=== PATIENT | female | born 1955 | race Caucasian/White ===

== ENCOUNTER 2019-05-20 13:09 | Inpatient (IN) ==
[2019-05-20 14:45] LABS: BASO# 0.06 X1000 (0.0-0.2); EOS% 1.7 % (0.0-10.0); HEMATOCRIT 25.7 % (37.0-47.0); HEMOGLOBIN 7.5 g/dL (12.0-16.0); IMM GRAN# 0.33 X1000 (0.0-0.04); IMM GRAN% 5.5 % (0.0-0.5); LYMPH# 2.15 X1000 (1.2-3.4); LYMPH% 35.6 % (20.5-51.1); MCHC 29.2 g/dL (33-37); MCV 102.8 FL (81-99); MONO# 0.51 X1000 (0.11-0.59); MONO% 8.4 % (1.7-9.3); NEUT# 2.89 X1000 (1.4-6.5); NEUT% 47.8 % (42.2-75.2); PLT 88 X1000 (130-400); RDW 17.9 % (11.5-14.5); WBC 6.04 X1000 (4.8-10.8)
[2019-05-20 14:57] LABS: AGAP 14; ALBUMIN 4.4 g/dL (3.5-5.0); ALKALINE PHOSPHATASE 165 U/L (32-104); BUN 9 mg/dL (8-22); CALCIUM 9.4 mg/dL (8.8-10.2); CHLORIDE 102 mmol/L (98-107); COSMO 282; CREATININE 0.5 mg/dL (0.5-0.9); ESTIMATED GFR > 60; GLUCOSE 94 mg/dL (70-104); GOT 23 U/L (10-30); GPT 10 U/L (10-36); LIPASE 15 U/L (13-60); POTASSIUM 3.9 mmol/L (3.5-5.1); SODIUM 142 mmol/L (136-145); TCO2 26 mmol/L (25-35); TOTAL PROTEIN 7.7 g/dL (6.3-8.3)
--- NOTE | 2019-05-20 16:03 | Diag Imaging Result Doc PS360 ---
EXAM: CT ABD/PELVIS W/IV CONT ONLY - 05/20/2019 HISTORY: LLQ, anterior rib pain TECHNIQUE: CT abdomen/pelvis with intravenous contrast COMPARISON: None. FINDINGS: The bony structures of the spine and pelvis demonstrates heterogeneous density with multiple round lucent lesions. There is some involvement of some visualized ribs, most conspicuous at the left posterior eighth, ninth, and 10th ribs. This can be seen with metastatic disease or multiple myeloma. There are postlaminectomy changes at the mid and lower lumbar spine. The visualized lung bases appear clear except for some hazy atelectasis. There are no substantial abnormalities of the liver, adrenal glands, or pancreas identified. The spleen is mildly prominent in size but demonstrate homogeneous enhancement. The gallbladder surgically absent. There is a 1.8 cm cyst at the anterior lower right kidney. The bilateral kidneys otherwise enhance homogeneously. There is a 4 mm nonobstructing stone in the mid to upper right kidney. There is no hydronephrosis. There are no substantially enlarged lymph nodes identified. There is a small midline anterior abdominal wall hernia at the midabdomen which contains fat. There is no bowel containing hernia identified. There is no evidence of bowel obstruction. There is no substantial bowel wall thickening identified. There is a moderate amount retained fecal debris in the colon suggesting constipation. There is no free air, free fluid, or abscess identified. There is no abnormal pelvic mass or fluid collection identified. IMPRESSION: Heterogeneous bony structures with multiple round lucent lesions. This can be seen with metastatic disease and multiple myeloma. Mild splenomegaly, without focal lesion. No other evidence of metastatic disease to the soft tissue abdomen/pelvis. Small right renal cyst. 4 mm nonobstructing stone in right kidney. No hydronephrosis. Small fat-containing midline anterior abdominal wall hernia at the midabdomen. No bowel containing hernia. No bowel obstruction. Apparent constipation. This report was discussed with Dr. Patel on 05/20/2019 at 3:59 PM and was readback. This exam was performed using automated exposure control, adjustment of mA or kV according to patient size, and/or use of iterative reconstruction technique. Electronically signed by Carlo Velasco 05/20/2019 4:01 PM
--- NOTE | 2019-05-20 16:16 | PROVIDER DOCUMENTATION ---
This chart was entered by Claudia Moore Scribe, acting as scribe for Marli Garza MD. HPI-General Adult - General Chief Complaint: Abnormal Lab[s] Stated Complaint: ABNORMAL LABS Time Seen by Provider: 05/20/19 13:50 Source: patient Allergies/Adverse Reactions: Patient Allergies Allergy/AdvReac Type Severity Reaction Status Date / Time meclizine [From Antivert] AdvReac Unknown Verified 05/20/19 18:47 Home Medications: Home Medication List Medication Instructions Recorded Confirmed Last Taken Type NK [No Home Medications] 05/20/19 05/20/19 Unknown History - History of Present Illness -Gen Adult Nature of Presenting Problems: Patient is a 64 year old female who presents with abnormal labs. States being seen at [facility] clinic for left side rib pain. Report pain has been present for 3 weeks. States being informed she has low H&H. Denies bleeding. Location of Pain/Injury: reports: other (left side ribs) Pain Radiation: reports: no radiation Quality of Pain: reports: aching Severity: reports: mild Onset/Duration: reports: other (3 weeks) Timing: reports: still present Context/Activities at Onset: reports: light activity Associated Symptoms: reports: denies symptoms Similar Symptoms Previously?: Yes Recently seen or treated by another doctor?: Yes Review of Systems - Adult - REVIEW OF SYSTEMS - ADULT Constitutional: reports: no symptoms reported Eyes: reports: no symptoms reported Ears, Nose, Mouth & Throat: reports: no symptoms reported Cardiovascular: reports: no symptoms reported Respiratory: reports: no symptoms reported Gastrointestinal: reports: no symptoms reported Genitourinary: reports: no symptoms reported Musculoskeletal: reports: see HPI, other (left side ribs pain) Integumentary: reports: no symptoms reported Neurological: reports: no symptoms reported Psychiatric: reports: no symptoms reported Endocrine: reports: no symptoms reported Hematologic/Lymphatic: reports: no symptoms reported Allergic/Immunologic: reports: no symptoms reported All Other Systems: Reviewed and Negative Past History - Adult - PAST MEDICAL HISTORY-ADULT Review of Records: reports: Old Records Reviewed, Nursing Assessment Review, Medications Reviewed, Social history reviewed & non-contributory. Major Childhood Illnesses: reports: denies history Cardiovascular: reports: HTN Respiratory: reports: denies history Gastrointestinal: reports: denies history Obstetrical/Gynecological: reports: denies history Genitourinary: reports: denies history Musculoskeletal: reports: denies history Neurological: reports: denies history Endocrine/Immune: reports: denies history Other Conditions: reports: denies history - PRIOR SURGERIES/PROCEDURES Surgical/Procedure History: reports: appendectomy, tonsillectomy, back/neck - IMMUNIZATION STATUS Childhood Immunizations: See Nurse Assessment Flu Vaccine: See Nurse Assessment - FAMILY HISTORY Family History: reviewed, not pertinent - SOCIAL HISTORY Smoking: denies Substance Use: denies Living Situation: family Physical Exam-General - PHYSICAL EXAM-ADULT Initial Vital Signs Reviewed: Yes - CONSTITUTIONAL General Appearance: alert, no apparent distress - HEAD, EARS, NOSE, MOUTH & THROAT HENMT: moist mucous membranes, normal ENT inspection - RESPIRATORY Respiratory: chest non-tender, lungs clear, normal breath sounds - CARDIOVASCULAR Cardiovascular: regular rate, rhythm - GASTROINTESTINAL (ABDOMEN) Abdominal Exam: normal bowel sounds, non tender, soft - MUSCULOSKELETAL Extremity: normal inspection - SKIN Integumentary: normal color, normal turgor, warm/dry - NEUROLOGIC Neurologic: grossly normal - PSYCHIATRIC Psych/Mental Status: normal mood/affect, normal thought content, normal thought process, oriented x 3 Progress - PLAN OF CARE/RESULTS Progress/Plan/Lab Results: Vital Signs - 8 hr 05/20/19 13:14 Temperature 97.5 F L Pulse Rate 87 Respiratory Rate 18 Blood Pressure 148/78 O2 Sat by Pulse Oximetry 100 Orders Category Date Time Status Saline Loc NOW Care 05/20/19 14:[address] ABD/PELVIS W/IV CONT ONLY [CT] Stat Exams 05/20/19 14:30 Ordered CBC WITH ELECTRONIC DIFF [HEME] Stat Lab 05/20/19 13:42 Results COMPREHENSIVE METABOLIC PANEL [CHEM] Stat Lab 05/20/19 13:42 Received LIPASE [CHEM] Stat Lab 05/20/19 13:42 Received URINALYSIS W/POSS RFLX CULT [URINALYSIS] Stat Lab 05/20/19 14:[address] showing concern for possible malignancy. H/H low for no know reason. Spoke to Dr Myers who accepted patient for admission. Further orders to be placed by their team. Result Diagrams: 05/20/19 13:42 05/20/19 13:42 - CT/MRI 1 CT Study: Abdomen (EXAM: CT ABD/PELVIS W/IV CONT ONLY - 05/20/2019 HISTORY: LLQ, anterior rib pain TECHNIQUE: CT abdomen/pelvis with intravenous contrast COMPARISON: None. FINDINGS: The bony structures of the spine and pelvis demonstrates heterogeneous density with multiple round lucent lesions. There is some involvement of some visualized ribs, most conspicuous at the left posterior eighth, ninth, and 10th ribs. This can be seen with metastatic disease or multiple myeloma. There are postlaminectomy changes at the mid and lower lumbar spine. The visualized lung bases appear clear except for some hazy atelectasis. There are no substantial abnormalities of the liver, adrenal glands, or pancreas identified. The spleen is mildly prominent in size but demonstrate homogeneous enhancement. The gallbladder surgically absent. There is a 1.8 cm cyst at the anterior lower right kidney. The bilateral kidneys otherwise enhance homogeneously. There is a 4 mm nonobstructing stone in the mid to upper right kidney. There is no hydronephrosis. There are no substantially enlarged lymph nodes identified. There is a small midline anterior abdominal wall hernia at the midabdomen which contains fat. There is no bowel containing hernia identified. There is no evidence of bowel obstruction. There is no s ubstantial bowel wall thickening identified. There is a moderate amount retained fecal debris in the colon suggesting constipation. There is no free air, free fluid, or abscess identified. There is no abnormal pelvic mass or fluid collection identified. IMPRESSION: Heterogeneous bony structures with multiple round lucent lesions. This can be seen with metastatic disease and multiple myeloma. Mild splenomegaly, without focal lesion. No other evidence of metastatic disease to the soft tissue abdomen/pelvis. Small right renal cyst. 4 mm nonobstructing stone in right kidney. No hydronephrosis. Small fat- containing midline anterior abdominal wall hernia at the midabdomen. No bowel containing hernia. No bowel obstruction. Apparent constipation. This report was discussed with Dr. Patel on 05/20/2019 at 3:59 PM and was readback. This exam was performed using automated exposure control, adjustment of mA or kV according to patient size, and/or use of iterative reconstruction technique.) - CONSULTS/PCP/HOSPITALIST Notification #1 *Consult/PCP/Hospitalist*: Dr Myers Time Discussed: 16:20 Consult Disposition: Will see in ED, Admit Departure - Departure Date of Disposition Decision: 05/20/19 Time of Disposition Decision: 16:26 DIAGNOSIS: Acute anemia, Abnormal CT of the abdomen, Rib pain on left side, LUQ pain, Splenomegaly Disposition: ADMITTED INPATIENT 09 Certified Medical Emergency: Emergent Condition: Stable - Critical Care Note This patient required my direct & personal management of CC.: No Attestation - Physician/ SALOME Attestation Patient care was provided by Advanced Practice Provider:: No The physician spent face to face time with patient:: Yes Advanced Practice Provider documentation review:: Supervising physician onsite and consulted in the evaluation and care of this patient. The physician did have a face to face encounter with the patient. This chart was documented by the indicated scribe, (Claudia Moore Scribe) and accurately reflects the services I performed and decisions made by me, Marli Garza MD, as attested by the provider's signature.
[2019-05-20 16:29] LABS: URINE SOURCE CLEAN CATCH
[2019-05-20 16:31] LABS: BILIRUBIN URINE NEGATIVE (NEGATIVE); BLOOD URINE NEGATIVE (NEGATIVE); COLOR YELLOW; GLUCOSE URINE NEGATIVE (NEGATIVE); KETONE URINE 10 mg/dL (NEGATIVE); LEUKOCYTES URINE TRACE (NEGATIVE); NITRITE URINE NEGATIVE (NEGATIVE); PH URINE 6.5; PROTEIN URINE 30 mg/dL (NEGATIVE); TURBIDITY URINE CLEAR (CLEAR); UROBILINOGEN URINE NORMAL (NORMAL)
[2019-05-20 16:32] LABS: UR EPITHELIAL CELLS <10 /HPF (<10); URINE BACTERIA NEGATIVE /HPF; URINE RBC <10 /HPF (<10)
[2019-05-20 17:16] LABS: PROTIME 13.7 Seconds (11.0-16.0)
[2019-05-20 17:17] LABS: PTT 32.8 Seconds (22.3-41.8)
--- NOTE | 2019-05-20 17:39 | Diag Imaging Result Doc PS360 ---
EXAM: CT THORAX W/O CONTRAST 05/20/2019 HISTORY: rib pain, ?mult myeloma/?metastatic disease TECHNIQUE: This exam was performed using automated exposure control, adjustment of mA or kV according to patient size, and/or use of iterative reconstruction technique. COMMENT: There is extensive lytic disease throughout the visualized skeleton consistent with the diagnosis of multiple myeloma. There are calcified nodes in the subcarina and right hilum. There are no abnormal fluid collections. The spleen is enlarged measuring over 14.5 cm. There is no evidence of acute pulmonary disease. IMPRESSION: Disseminated osseous lytic disease. Electronically signed by Pablo Preston 05/20/2019 5:37 PM
[2019-05-20] MEDS ORDERED: ATIVAN PO PRN (18:24)
[2019-05-20] MEDS ORDERED: ZOFRAN IV PRN (18:24)
--- NOTE | 2019-05-20 18:52 | HISTORY AND PHYSICAL ---
CHIEF COMPLAINT: Abnormal labs and left rib pain. HISTORY OF PRESENT ILLNESS: This is a 64-year-old female with a history of hypertension who presents to the emergency room with family members after having labs drawn at an outlying clinic and being told her hemoglobin and hematocrit were low. She needed to come to the emergency room for further evaluation. She states that she presented for evaluation at the clinic for left rib pain that had been present for 3 weeks. On arrival to the emergency room, she was found to have a hemoglobin of 7.5, hematocrit 25.7 and a platelet count of 88,000. CT of the abdomen and pelvis was performed and she was found to have heterogeneous bony structures with multiple round lucent lesions seen with metastatic disease and multiple myeloma as well as a 4 mm nonobstructing right renal stone. PAST MEDICAL HISTORY: Hypertension. PAST SURGICAL HISTORY: Appendectomy, tonsillectomy, breast reduction, abdominoplasty. SOCIAL HISTORY: She is , lives with her . She denies any alcohol, tobacco, or illicit drug use. ALLERGIES: Meclizine with unknown reaction. HOME MEDICATIONS: None. REVIEW OF SYSTEMS: Discussed with the patient with pertinent positives stated in the HPI. She denied any syncope or dizziness, any chest pain or palpitations, any shortness of breath, cough, fever, chills, night sweats, recent weight loss or weight gain, any nausea, vomiting, diarrhea, constipation, black or bloody vomitus or stools, any hematuria, dysuria, frequency, urgency, any shortness of breath, any productive cough. PHYSICAL EXAMINATION: GENERAL: This is a 64-year-old female who is sitting on the stretcher in the emergency room in no distress. VITAL SIGNS: Blood pressure is 148/78 with heart rate of 87, respirations 18, temperature 97.5 degrees with room air saturations 100%. EYES: Pupils equal, round, react to light. EOMs are intact. Sclerae anicteric. HEENT: Head is normocephalic, atraumatic. Mucous membranes are moist. NECK: Supple with trachea midline. CARDIOVASCULAR: Regular rate and rhythm. S1 and S2 appreciated. She has no lower extremity edema. She denies any calf tenderness with peripheral pulses palpable x4 extremities. PULMONARY: Breath sounds are clear. No increased work of breathing noted. Chest rises and falls symmetric with respiration. Chest wall is nontender to palpation. GASTROINTESTINAL: Abdomen is soft, nontender, nondistended. Bowel sounds in all 4 quadrants. GENITOURINARY: No CVA or suprapubic tenderness. NEUROLOGIC: She is alert and oriented x3. SKIN: Warm and dry. LABS: WBC is 6.0 with hemoglobin 7.5, hematocrit 25.7, and platelets of 88,000. INR is 1. Sodium 142, potassium 3.9, BUN 9, creatinine 0.5 with a glucose of 94. Urinalysis is essentially negative. CT of the abdomen and pelvis revealed heterogeneous bony structures with multiple round lucent lesions. This can be seen with metastatic disease and multiple myeloma. This is most conspicuous in the left posterior 8th, 9th and 10th ribs. Mild splenomegaly without focal lesion. No evidence of metastatic disease to the soft tissue of the abdomen and pelvis. Small right renal cyst with 4 mm nonobstructing renal stone. No hydronephrosis. Apparent constipation. ASSESSMENT AND PLAN: 1. Anemia. 2. Left-sided rib pain. 3. Abnormal CT of the abdomen and pelvis showing metastatic disease or multiple myeloma. PLAN: 1. obtain a CT of the chest without contrast. 2. LDH, sedimentation rate, CRP, CEA, serum protein electrophoresis and urine protein electrophoresis. 3. CBC and BMP in the morning. 4. I did discuss the patient with Dr. Bowers. She will be transferred to [facility] where he will follow the patient. 5. For DVT prophylaxis will use SCDs and GI prophylaxis Prilosec. 6. Plan was discussed with Dr. Myers. Further treatments pending hospital course . Dictated by BRIANA Cage for Yonatan Myers MD cc: BRIANA Cage MD [facility]
--- NOTE | 2019-05-20 21:55 | HISTORY AND PHYSICAL ---
ADDENDUM: The patient is a very pleasant 64-year-old female who presented to the hospital with chest pain and left upper quadrant pain. CT abdomen and subsequent CT of chest read normal. Certainly worrisome for multiple myeloma. We are going to admit to the hospital, consult Hematology and will follow. cc: Yonatan Myers MD
[2019-05-21] MEDS: PRILOSEC PO SCH (08:01)
[2019-05-21 08:47] LABS: AGAP 12; BUN 8 mg/dL (8-22); CALCIUM 9.3 mg/dL (8.8-10.2); CHLORIDE 104 mmol/L (98-107); COSMO 283; CREATININE 0.6 mg/dL (0.5-0.9); ESTIMATED GFR > 60; GLUCOSE 95 mg/dL (70-104); SODIUM 143 mmol/L (136-145); TCO2 27 mmol/L (25-35)
[2019-05-21 08:53] LABS: BASO# 0.03 X1000 (0.0-0.2); BASO% 0.6 % (0.0-0.8); EOS# 0.07 X1000 (0.0-0.7); EOS% 1.4 % (0.0-10.0); HEMATOCRIT 24.3 % (37.0-47.0); HEMOGLOBIN 7.2 g/dL (12.0-16.0); IMM GRAN# 0.24 X1000 (0.0-0.04); LYMPH% 37.2 % (20.5-51.1); MCH 30.3 PG (27-31); MCHC 29.6 g/dL (33-37); MCV 102.1 FL (81-99); MONO# 0.32 X1000 (0.11-0.59); MONO% 6.6 % (1.7-9.3); NEUT# 2.38 X1000 (1.4-6.5); NEUT% 49.2 % (42.2-75.2); PLT 79 X1000 (130-400); RBC 2.38 XMIL (4.2-5.4); RDW 17.7 % (11.5-14.5); WBC 4.84 X1000 (4.8-10.8)
[2019-05-21] MEDS: VITAMIN B-12 SL SCH (11:22)
[2019-05-21] MEDS ORDERED: SENSORCAINE-MPF 0.5%/EPI 1:200,000 INJ ONE (13:28)
--- NOTE | 2019-05-21 14:37 | HEMO/ONC CONSULTATION ---
DATE: 05/21/2019 REASON FOR CONSULTATION: Abnormal CT scan and labs. HISTORY OF PRESENT ILLNESS: Ms. Lang is a 64-year-old female who came to the emergency room after having labs drawn at another clinic revealing a very low hemoglobin and hematocrit. The patient presented for evaluation to that clinic for left rib pain that has been present for 3 weeks. On arrival to the emergency room she was found to have a hemoglobin of 7.5, hematocrit of 25.7, and a platelet count of 88,000. CT scan of abdomen and pelvis was performed and she was found to have heterogeneous bony structures with multiple round lucent lesions seen with the possibility of metastatic disease and multiple myelomas. Upon meeting the patient this morning, the patient states that she feels very well. Her only pain is to her left rib cage. She denies any injury or fall to the area. The patient has no history of blood disorder or ever being told she is anemic. The patient denies GI bleeding. She denies black, red or tarry stools. PAST MEDICAL HISTORY: Hypertension. PAST SURGICAL HISTORY: Appendectomy, tonsillectomy, breast reduction, abdominoplasty. SOCIAL HISTORY: The patient denies any tobacco, alcohol, or illicit drug use. ALLERGIES: Meclizine. HOME MEDICATIONS: No known home medications. REVIEW OF SYSTEMS: The patient complains of pain to the left rib cage. She denies any other significant bone pain. All other review of systems negative. PHYSICAL EXAMINATION: Vital Signs: Temperature 98.1 degrees, pulse rate 83, respiratory rate 16, blood pressure 124/50, O2 saturation 99% on room air. She is in 0/10 pain. General: The patient is comfortable, sitting up eating breakfast, in no acute distress. HEENT: Sclerae anicteric. PERRLA. Oral mucosa is normal. Cardiovascular: S1, S2 normal. Regular heart rate and rhythm. No lower extremity edema noted. Respiratory: Lung sounds are clear to auscultation. Normal respiratory effort. Abdomen: Soft, nontender, nondistended. Bowel sounds are present. Neurological: Alert and oriented x3. No focal motor deficits noted. Skin: Warm and dry and intact. No ecchymosis, petechiae, or rashes noted on exposed skin. Lymphatics: No lymphadenopathy noted to neck or axillary area. Breast: Manual breast exam does not reveal any dominant masses or breast abnormalities. LABORATORY: WBCs 4.84, hemoglobin 7.2, hematocrit 24.3, platelet count 79,000. ANC 2.38. Sodium 143, potassium 4.0. Creatinine 0.6, ferritin 495, alkaline phosphatase 165, LDH 443. C-reactive protein 18.61, B12 258, folate 13.7. RADIOLOGY: Chest CT disseminated osseous lytic disease, splenomegaly at 14.[address] abdomen and pelvis heterogeneous bony structures with multiple round lucent lesions. No other evidence of metastatic disease to the soft tissue. Abdomen and pelvis, small right renal cyst 4 mm. ASSESSMENT AND PLAN: 1. Microcytic anemia. We are obtaining additional labs at this time and evaluating. The patient will require blood transfusion for a hemoglobin of less than 7. We will continue to monitor. 2. B12 deficiency. The patient has been placed on a B12 sublingual supplement. We will continue to monitor. 3. Multiple bone metastasis. We have ordered a bone scan as well as a bone marrow biopsy to be performed tomorrow. We have added additional labs for further evaluation. CT scan shows no dominant masses. Primary unknown at this time. 4. Deep venous thrombosis prophylaxis. The patient should be on sequential compression devices. She should be also be able to get up out of the bed several times a day. Dictated by BRIANA Shell for Kiko Bowers MD As above. Multiple bone lesions. Check labs and bone scan. Check myeloma studies and a bone marrow biopsy. Check anemia labs. Will follow with you. Kiko Bowers MD cc: Kiko Bowers MD MTD
--- NOTE | 2019-05-21 14:45 | PROGRESS NOTE ---
DATE: 05/21/2019 INTERVAL HISTORY: Patient with continued left lateral chest wall pain which is reasonably controlled. No new complaints. No acute events overnight. Discussed patient's likely diagnosis of cancer with patient and family. REVIEW OF SYSTEMS: A 12- point review of systems negative except as per interval history. LABS: WBC 4.8, hemoglobin 7.2, hematocrit 24.3, platelets 79,000. Sodium 143, potassium 4, BUN 8, creatinine 0.6, glucose 95. PHYSICAL EXAMINATION: Vital Signs: Temperature 98.2 degrees, pulse 96, respirations 20, blood pressure 144/61, O2 saturation 98% on room air. General: No acute distress. HEENT: Normocephalic, atraumatic. Moist mucous membranes. Cardiovascular: Regular rate and rhythm. No murmurs noted. Pulmonary: Clear to auscultation bilaterally. No wheezing, rales, or rhonchi. Abdomen: Soft, nontender, nondistended. Bowel sounds positive. Extremities: Peripheral pulses intact. No clubbing or cyanosis. Neurologic: Cranial nerves grossly intact. No focal deficits identified. Psychiatric: Normal mood and affect. Awake, alert, oriented x3. ASSESSMENT AND PLAN: 1. Possible multiple myeloma, bone metastasis to multiple bones. Left-sided rib pain. The patient's lateral rib pain is likely due to significant lytic lesions noted on imaging. She has involvement of numerous areas in the ribs and spine. No non bony masses noted. Appearance is most consistent with multiple myeloma, although her labs do not really match up with that very well. She has no protein gap. Her calcium and kidney function are both normal. This is almost certainly metastatic malignancy of some kind. Oncology consulted. Multiple myeloma labs sent. We will see what Oncology says about further workup. The patient is pretty stable and pain is pretty well controlled without IV narcotics, so once initial workup is in progress, she can likely be discharged home to follow up with Oncology in clinic, assuming her blood counts behave. 2. Anemia. The patient endorsing some fatigue, but no dizziness, dyspnea, chest pain, or other sign that she is significantly symptomatic with her anemia. We will monitor and consider transfusion if hemoglobin drops below 7. 3. Thrombocytopenia. No signs or symptoms of active bleeding. Platelets fairly stable on recheck. Will monitor.
[2019-05-21 15:04] LABS: RETIC% 5.61 % (0.8-2.1); RETIC-HE 28.7 PG (28.2-36.6)
[2019-05-21 15:15] LABS: IRON SATURATION 41 %; TIBC 222 ug/dL; TOTAL IRON 92 ug/dL (49-151); UNBOUND IRON 130 ug/dL (112-346)
[2019-05-21 15:31] LABS: FREE T4 0.99 ng/dL (0.93-1.70); TSH 3.12 uIUmL (0.27-4.20)
[2019-05-21] MEDS: NORCO-5 PO PRN (20:49)
[2019-05-22] MEDS: PRILOSEC PO SCH (06:31)
[2019-05-22] MEDS: VITAMIN B-12 SL SCH (08:37)
[2019-05-22 09:00] LABS: BASO# 0.03 X1000 (0.0-0.2); BASO% 0.7 % (0.0-0.8); EOS# 0.05 X1000 (0.0-0.7); EOS% 1.2 % (0.0-10.0); HEMATOCRIT 23.8 % (37.0-47.0); IMM GRAN# 0.21 X1000 (0.0-0.04); LYMPH# 1.65 X1000 (1.2-3.4); MCHC 29.4 g/dL (33-37); MCV 102.1 FL (81-99); MONO# 0.31 X1000 (0.11-0.59); MONO% 7.3 % (1.7-9.3); MPV 10.4 FL (7.4-10.4); NEUT# 1.98 X1000 (1.4-6.5); NEUT% 46.8 % (42.2-75.2); PLT 82 X1000 (130-400); RBC 2.33 XMIL (4.2-5.4); RDW 17.7 % (11.5-14.5); WBC 4.23 X1000 (4.8-10.8)
[2019-05-22] MEDS ORDERED: MARCAINE 0.5% PF ONE (09:00)
[2019-05-22] MEDS ORDERED: DIPRIVAN 1% ONE ×2 (09:02→09:53)
[2019-05-22] MEDS ORDERED: XYLOCAINE-MPF 2% ONE (09:03)
[2019-05-22 09:14] LABS: AGAP 12; ALB/GLOB RATIO 1.2; ALBUMIN 3.6 g/dL (3.5-5.0); ALKALINE PHOSPHATASE 139 U/L (32-104); BUN 9 mg/dL (8-22); CALCIUM 9.2 mg/dL (8.8-10.2); CHLORIDE 103 mmol/L (98-107); COSMO 280; CREATININE 0.5 mg/dL (0.5-0.9); ESTIMATED GFR > 60; GLUCOSE 100 mg/dL (70-104); GOT 17 U/L (10-30); GPT 9 U/L (10-36); POTASSIUM 3.7 mmol/L (3.5-5.1); SODIUM 141 mmol/L (136-145); TCO2 26 mmol/L (25-35); TOTAL BILIRUBIN 0.41 mg/dL (0.20-1.00); TOTAL PROTEIN 6.5 g/dL (6.3-8.3)
--- NOTE | 2019-05-22 09:26 | PROGRESS NOTE ---
DATE: 05/22/2019 SUBJECTIVE: The patient reports left lateral chest wall pain that is under control with the medication that she is receiving here in the hospital. OBJECTIVE: Vital Signs: Temperature 97.6 degrees, heart rate 76, respiratory rate 18, blood pressure 110/54, O2 saturation 98% on room air. General: This is a 64-year-old, female, lying in bed in no acute distress. Cardiovascular: S1, S2 heard. No murmurs, gallops, or rubs. Regular rate and rhythm. Respiratory: Clear bilaterally to auscultation. No work of breathing. Not using accessory muscles. Abdomen: Soft, nontender to palpation. Bowel sounds present. No organomegaly. Extremities: No clubbing, cyanosis, or edema. Peripheral pulses present in both legs. Neurological: The patient is alert and oriented x3. Moves all 4 extremities. LABORATORY DATA: Hemoglobin 7.2, with white cell count 4.23, platelets are 82,000. BMP is still pending at the time of my dictation, but from yesterday is completely normal. ASSESSMENT AND PLAN: 1. Possible multiple myeloma with bone metastases to multiple bones and left-sided rib pain. At this point, the primary tumor is unknown. Hematology/Oncology has been consulted. The patient is going to have bone scan and bone yang biopsy as well. Will see what those exams show. Laboratory data for multiple myeloma has been ordered, but of course, is still not yet available. At this point, will check with Oncology to see for how long they are planning to keep this patient in the hospital. From my standpoint, pain is under control, so will continue with current management. 2. Anemia of chronic disease. Hemoglobin has dropped a little bit down to 7.2 today, so will prefer to transfuse 1 unit of blood, and will check CBC tomorrow. 3. Thrombocytopenia. Platelets are still low, but will continue to monitor. cc: Tera Ferrell MD
[2019-05-22 09:57] LABS: BANDS 4 % (0-1); LYMPHS 60 % (21-51); MONO 12 % (1-9); SEGS 24 % (42-75)
[2019-05-22 10:12] LABS: FLOW CYTOMETERY SOURCE BONE MARROW; LEUKEMIA LYMPHOMA BY FLOW REFERRED FOR TESTING
[2019-05-22] MEDS: NORCO-5 PO PRN (10:40)
[2019-05-22] MEDS: NS 500 ML IV ONE ×2 (11:17→15:15)
--- NOTE | 2019-05-22 12:03 | HEMO/ONC PROGRESS NOTE ---
DATE: 05/22/2019 SUBJECTIVE: Ms. Wilkinson is a little sullen this morning. She is having a hard time with a lot of information that has been given to her over the last few days. She denies any new pain. She continues to have some mild pain at her left ribs. The patient does not have very good veins and she is growing tiresome of multiple blood draws that have been difficult on her. The patient is aware that the plan is to get a bone marrow biopsy as well as a bone scan today. OBJECTIVE: Vital Signs: Temperature 97.6 degrees, pulse rate 77, respiratory rate 20, blood pressure 115/43, O2 saturation 98% on room air. Currently 8/10 hip pain, status post bone marrow biopsy. Physical Examination: General: The patient is in no acute distress, although she does have a flat affect and is slightly depressed. Cardiovascular: Normal S1, S2. Heart rate and rhythm regular. Respiratory: Lungs are clear to auscultation. Normal respiratory effort. Abdomen: Soft, nontender, nondistended. Bowel sounds are present. No masses noted. Extremities: No lower extremity edema noted. No bony abnormalities. Neurological: Alert and oriented x3. Somewhat flat affect. No focal motor deficits noted. Sensation intact. Laboratory: WBCs 4.23, hemoglobin 7.0, hematocrit 23.8, platelet count 82,000, reticulocyte count 5.61. Iron profile adequate. TSH 3.12, free T4 of 0.99. Immunoglobulins within normal limits. Light chains within normal limits. SPEP continues to be pending. ASSESSMENT AND PLAN: 1. Macrocytic anemia. At this time, we are continuing to evaluate her labs. The patient denies any source of bleeding. She will require a blood transfusion for a hemoglobin of less than 7 or if she is symptomatic. 2. B12 deficiency. The patient has been placed on sublingual B12 supplement. She is going to be discharged with a prescription and told to continue. We will continue to monitor as an outpatient in the office. 3. Multiple bone metastases. The patient has had her bone marrow biopsy this morning already. We are continuing to await the results. The patient will also have a bone scan. After the patient's bone scan, she is eligible to go home from our standpoint. We will follow up with her in the clinic as soon as possible. At this time, primary remains unknown. We will continue to monitor. 4. Deep venous thrombosis prophylaxis. The patient is on sequential compression devices. She needs to be getting up out of bed at least 3 times a day. Dictated by BRIANA Shell for Kiko Bowers MD cc: Kiko Bowers MD MTD
--- NOTE | 2019-05-22 14:20 | Diag Imaging Result Doc PS360 ---
EXAM: BONE SCAN, TOTAL BODY 05/21/2019 HISTORY: r/o bone mets TECHNIQUE: 26.9 mCi of technetium 99m MDP with whole body scanning COMMENT: There is no evidence of focal abnormal radiotracer accumulation. Note should be made that purely lytic disease, such as multiple myeloma, will not show up on a bone scan. Uptake in the visualized skeleton is fairly uniform. There is very little appreciable urinary tract activity. This finding may be indicative of a SuperScan, which may be seen in diffuse metastatic or metabolic disease. IMPRESSION: No focal abnormality. Electronically signed by Pablo Preston 05/22/2019 2:18 PM
[2019-05-22 15:04] VITALS: BP 129/53
--- NOTE | 2019-05-23 13:31 | DISCHARGE SUMMARY ---
ADMISSION DATE: 05/21/2019 DISCHARGE DATE: 05/22/2019 DISCHARGE DIAGNOSES: 1. Anemia. 2. Possible multiple myeloma. 3. Right-sided rib pain. CONSULTATIONS: Dr. Kiko Bowers from Hematology/Oncology. PROCEDURES: 1. Abdomen and pelvis CT showed bony structures with multiple round lesions. This can be seen with metastatic disease and multiple myeloma. 2. CT of the chest showed disseminated osseous lytic disease. 3. Body scan nuclear medicine showed no focal abnormality. 4. Bone marrow biopsy is pending. HOSPITAL COURSE: In brief, this is a 64-year-old female who presented to the emergency department because she was told that she was found to be anemic on routine lab tests. Hemoglobin at admission was 7.5, hematocrit 25.7 and platelet count of 88,000. CT of the abdomen shows results as above, so she was admitted for further workup of possible malignancy. At this point, she was evaluated by Dr. Bowers. Procedures performed as above. At this point, she has been cleared by Hematology Oncology and she is going to be seen in the office in a week for results of all exams including bone marrow and PET scan as well. The patient is going to be discharged in stable condition. Pain is under control. DISCHARGE PHYSICAL EXAMINATION: Vital signs: Temperature 98.6 degrees, heart rate 91, respiratory rate 28, blood pressure 129/53, O2 saturation 100% on room air. General: This is a 64-year-old female, lying in bed, in no acute distress. Cardiovascular: S1, S2 heard. No murmurs, gallops, or rubs. Regular rate and rhythm. Respiratory: Clear bilaterally to auscultation. No work of breathing or using accessory muscles. Abdomen: Soft, nontender to palpation. Bowel sounds present. No organomegaly. Extremities: No clubbing, cyanosis, or edema. Peripheral pulses present in both legs. Neurological: The patient alert and oriented x3. Moves 4 extremities. DISCHARGE DISPOSITION: Home to self-care. FOLLOWUP: With Dr. Bowers as already scheduled. MEDICATIONS: 1. [place] 5 mg 1 tablet p.o. q.4 hours p.r.n. 2. Ativan 0.5 mg 1 tablet p.o. q.6 hours p.r.n. anxiety. TIME DISCHARGING THIS PATIENT: 33 minutes. cc: MD DEMETRIO Kuo
[2019-06-03 09:54] LABS: TEST NAME CHROM ANAL BON
== END 2019-05-22 16:55 | disposition home or self-care (01) | DRG 841 ==
LOC: P.ED 13:09 → 3N 13:09 → SUATTDRO 18:44
PROVIDERS: ATTEND Internal Medicine